=== PATIENT | male | born 1955 | race Caucasian/White ===

== ENCOUNTER 2022-01-07 13:48 | Inpatient (IN) | payer OTHER ==
[2022-01-07 14:29] VITALS: BMI 29.4
[2022-01-07] MEDS ORDERED: MAGNESIUM CITRATE 300 ML BOTTLE PO PRN (15:26)
[2022-01-07] MEDS ORDERED: DICYCLOMINE HCL 10 MG CAPSULE PO PRN (15:26)
[2022-01-07] MEDS ORDERED: LORazepam 1 MG TABLET PO PRN (15:26)
[2022-01-07] MEDS ORDERED: BENZOCAINE/MENTHOL (CHLORASEPTIC ) LOZENGE MM PRN (15:26)
[2022-01-07] MEDS ORDERED: ACETAMINOPHEN 325 MG TABLET (FP) PO PRN (15:26)
[2022-01-07] MEDS ORDERED: BISMUTH SUBSALICYLATE 262 MG/15 ML BTL PO PRN (15:26)
[2022-01-07] MEDS ORDERED: MAGNESIUM HYDROX 2400MG/30ML ORAL SUSPENSION 30 ML CUP PO PRN (15:26)
[2022-01-07] MEDS ORDERED: LOPERAMIDE HCL 2 MG CAPSULE PO PRN (15:26)
[2022-01-07] MEDS ORDERED: IBUPROFEN 400 MG TABLET (FP) PO PRN (15:26)
[2022-01-07] MEDS ORDERED: ONDANSETRON *ODT* 4 MG TABLET SL PRN (15:26)
[2022-01-07] MEDS: hydrOXYzine PAMOATE 25 MG CAPSULE (FP) PO PRN ×2 (19:45→22:56)
[2022-01-07] MEDS: IBUPROFEN 600 MG TABLET (FP) PO PRN (19:45)
[2022-01-07] MEDS: METHOCARBAMOL 500 MG TABLET PO PRN (19:47)
[2022-01-07] MEDS: LORazepam 2 MG TABLET PO SCH ×2 (19:47→22:56)
[2022-01-07] MEDS: NICOTINE 14 MG/24 HOURS TOPICAL PATCH TD SCH (19:51)
[2022-01-07] MEDS: PRENATAL VITAMINS W/ FOLIC ACID TABLET (FP) PO SCH (19:51)
[2022-01-07] MEDS ORDERED: MELATONIN 5 MG TABLETS PO SCH (22:00)
[2022-01-07] MEDS: THIAMINE HCL 100 MG TABLET (FP) PO SCH (22:56)
[2022-01-08] MEDS: LORazepam 2 MG TABLET PO SCH ×4 (05:31→22:14)
[2022-01-08 10:26] LABS: HEMOGLOBIN 13.8 GM/dL (11.7-16.9); MCH 34.6 pg (25.7-33.7); MCHC 33.7 g/dl (32.0-35.9); MEAN CELL VOLUME 102.7 fl (80-96); MEAN PLT VOLUME 10.3 fl (7.5-11.1); PLATELET COUNT 194 10^3/uL (134-434); RBC 3.99 M/mm3 (4.00-5.60); WHITE BLOOD COUNT 6.8 K/mm3 (4.0-10.0)
[2022-01-08] MEDS: PRENATAL VITAMINS W/ FOLIC ACID TABLET (FP) PO SCH (10:36)
[2022-01-08] MEDS: NICOTINE 14 MG/24 HOURS TOPICAL PATCH TD SCH (10:37)
[2022-01-08] MEDS: METHOCARBAMOL 500 MG TABLET PO PRN ×2 (10:38→22:14)
[2022-01-08] MEDS: hydrOXYzine PAMOATE 25 MG CAPSULE (FP) PO PRN (10:38)
[2022-01-08 10:48] LABS: CALCIUM 8.4 mg/dL (8.5-10.1)
[2022-01-08 10:49] LABS: BLOOD UREA NITROGEN 19.4 mg/dL (7-18)
[2022-01-08 10:52] LABS: CREATININE 0.7 mg/dL (0.55-1.3)
[2022-01-08 10:53] LABS: BILIRUBIN,TOTAL 1.2 mg/dL (0.2-1); TOT PROT 5.7 g/dl (6.4-8.2)
[2022-01-08] MEDS: IBUPROFEN 600 MG TABLET (FP) PO PRN (13:47)
[2022-01-08] MEDS: NICOTINE 10 MG CARTRIDGE (INHALER) IH PRN (17:47)
[2022-01-08] MEDS ORDERED: SUVOREXANT 10 MG TABLET PO PRN (22:00)
[2022-01-08] MEDS: THIAMINE HCL 100 MG TABLET (FP) PO SCH (23:52)
[2022-01-09] MEDS: LORazepam 1 MG TABLET PO SCH ×4 (05:39→22:04)
[2022-01-09] MEDS: ACETAMINOPHEN 325 MG TABLET (FP) PO PRN (05:39)
[2022-01-09] MEDS: METHOCARBAMOL 500 MG TABLET PO PRN (10:31)
[2022-01-09] MEDS: PRENATAL VITAMINS W/ FOLIC ACID TABLET (FP) PO SCH (10:31)
[2022-01-09] MEDS: amLODIPine BESYLATE 5 MG TABLET (FP) PO SCH (10:33)
[2022-01-09] MEDS: IBUPROFEN 600 MG TABLET (FP) PO PRN (10:33)
[2022-01-09] MEDS: NICOTINE 14 MG/24 HOURS TOPICAL PATCH TD SCH (10:56)
[2022-01-09] MEDS: THIAMINE HCL 100 MG TABLET (FP) PO SCH (22:03)
[2022-01-10] MEDS ORDERED: LORazepam 0.5 MG TABLET PO PRN
[2022-01-10] MEDS: LORazepam 0.5 MG TABLET PO SCH ×4 (05:59→22:57)
[2022-01-10] MEDS: ACETAMINOPHEN 325 MG TABLET (FP) PO PRN ×2 (06:00→14:22)
[2022-01-10] MEDS: METHOCARBAMOL 500 MG TABLET PO PRN (06:00)
[2022-01-10] MEDS: PRENATAL VITAMINS W/ FOLIC ACID TABLET (FP) PO SCH (10:25)
[2022-01-10] MEDS: amLODIPine BESYLATE 5 MG TABLET (FP) PO SCH (10:25)
[2022-01-10] MEDS: NICOTINE 14 MG/24 HOURS TOPICAL PATCH TD SCH (10:27)
[2022-01-10] MEDS: NICOTINE 10 MG CARTRIDGE (INHALER) IH PRN ×2 (11:34→15:19)
[2022-01-10] MEDS: hydrOXYzine PAMOATE 25 MG CAPSULE (FP) PO PRN ×2 (14:20→22:58)
[2022-01-10] MEDS: MAG HYDROX/AL HYDROX/SIMETH 30 ML UNIT-DOSE CUP PO PRN ×2 (18:31→23:56)
[2022-01-10] MEDS ORDERED: cloNIDine HCL 0.1 MG TABLET PO ONE (22:00)
[2022-01-10] MEDS: THIAMINE HCL 100 MG TABLET (FP) PO SCH (22:58)
[2022-01-11] MEDS ORDERED: LORazepam 0.5 MG TABLET PO ONE (05:00)
[2022-01-11] MEDS: METHOCARBAMOL 500 MG TABLET PO PRN (05:01)
[2022-01-11 09:22] VITALS: BP 135/79; PULSE 66; TEMP 98.2
[2022-01-11] MEDS: NICOTINE 10 MG CARTRIDGE (INHALER) IH PRN (09:39)
[2022-01-11] MEDS: PRENATAL VITAMINS W/ FOLIC ACID TABLET (FP) PO SCH (09:44)
[2022-01-11] MEDS: amLODIPine BESYLATE 5 MG TABLET (FP) PO SCH (09:44)
== END 2022-01-11 10:55 | disposition home or self-care (01) | DRG 897 ==
LOC: YASAS 13:48 → Y6N 17:04
PROVIDERS: ADMIT Allergy & Immunology; ATTEND Surgery
PROC: HZ2ZZZZ Detoxification Services for Substance Abuse Treatment (ICD-10-PCS; principal; 2022-01-07)
DX: F10.230 Alcohol dependence with withdrawal, uncomplicated (principal); F13.20 Sedative, hypnotic or anxiolytic dependence, uncomplicated; F19.280 Other psychoactive substance dependence with psychoactive substance-induced anxiety disorder; F19.282 Other psychoactive substance dependence with psychoactive substance-induced sleep disorder; F12.20 Cannabis dependence, uncomplicated; F17.210 Nicotine dependence, cigarettes, uncomplicated; F41.8 Other specified anxiety disorders; F32.A Depression, unspecified; F41.0 Panic disorder [episodic paroxysmal anxiety]; K74.60 Unspecified cirrhosis of liver; M16.0 Bilateral primary osteoarthritis of hip; Z99.89 Dependence on other enabling machines and devices; Z88.0 Allergy status to penicillin
CPT/HCPCS: 36415; 80053; 85027; 86780; 93005; 93010; C9803-CS; J0735; U0003; U0005

== ENCOUNTER 2022-03-17 13:04 | Inpatient (IN) | payer OTHER ==
[2022-03-17 16:27] VITALS: BMI 27.8
[2022-03-17] MEDS ORDERED: MAGNESIUM CITRATE 300 ML BOTTLE PO PRN (18:50)
[2022-03-17] MEDS ORDERED: BENZOCAINE/MENTHOL (CHLORASEPTIC ) LOZENGE MM PRN (18:50)
[2022-03-17] MEDS ORDERED: DICYCLOMINE HCL 10 MG CAPSULE PO PRN (18:50)
[2022-03-17] MEDS ORDERED: IBUPROFEN 600 MG TABLET (FP) PO PRN (18:50)
[2022-03-17] MEDS ORDERED: LOPERAMIDE HCL 2 MG CAPSULE PO PRN (18:50)
[2022-03-17] MEDS ORDERED: ACETAMINOPHEN 325 MG TABLET (FP) PO PRN ×2 (18:50)
[2022-03-17] MEDS ORDERED: ONDANSETRON *ODT* 4 MG TABLET SL PRN (18:50)
[2022-03-17] MEDS ORDERED: MAG HYDROX/AL HYDROX/SIMETH 30 ML UNIT-DOSE CUP PO PRN (18:50)
[2022-03-17] MEDS ORDERED: BISMUTH SUBSALICYLATE 524 MG/30 ML PO PRN (18:50)
[2022-03-17] MEDS ORDERED: LORazepam 1 MG TABLET PO PRN (18:50)
[2022-03-17] MEDS ORDERED: METHOCARBAMOL 500 MG TABLET PO PRN (18:50)
[2022-03-17] MEDS ORDERED: IBUPROFEN 400 MG TABLET (FP) PO PRN (18:50)
[2022-03-17] MEDS ORDERED: MAGNESIUM HYDROX 2400MG/30ML ORAL SUSPENSION 30 ML CUP PO PRN (18:50)
[2022-03-17] MEDS ORDERED: NICOTINE POLACRILEX 2 MG GUM BUC PRN (18:50)
[2022-03-17] MEDS: PRENATAL VITAMINS W/ FOLIC ACID TABLET (FP) PO SCH (20:51)
[2022-03-17] MEDS: LORazepam 2 MG TABLET PO SCH (22:46)
[2022-03-17] MEDS: hydrOXYzine PAMOATE 25 MG CAPSULE (FP) PO SCH (22:47)
[2022-03-17] MEDS: THIAMINE HCL 100 MG TABLET (FP) PO SCH (22:47)
[2022-03-17] MEDS: MELATONIN 5 MG TABLETS PO SCH (22:47)
[2022-03-18] MEDS: LORazepam 2 MG TABLET PO SCH ×4 (05:39→22:32)
[2022-03-18] MEDS: hydrOXYzine PAMOATE 25 MG CAPSULE (FP) PO SCH ×5 (05:39→22:33)
[2022-03-18] MEDS: PRENATAL VITAMINS W/ FOLIC ACID TABLET (FP) PO SCH (10:39)
[2022-03-18 11:04] LABS: HEMATOCRIT 38.8 % (35.4-49); HEMOGLOBIN 13.1 GM/dL (11.7-16.9); MCH 33.5 pg (25.7-33.7); MCHC 33.8 g/dl (32.0-35.9); MEAN CELL VOLUME 99.3 fl (80-96); MEAN PLT VOLUME 10.1 fl (7.5-11.1); PLATELET COUNT 234 10^3/uL (134-434); RBC 3.91 M/mm3 (4.00-5.60); RDW 14.3 % (11.9-15.9); WHITE BLOOD COUNT 7.1 K/mm3 (4.0-10.0)
[2022-03-18 11:32] LABS: ALBUMIN 2.8 g/dl (3.4-5.0); BLOOD UREA NITROGEN 10.4 mg/dL (7-18)
[2022-03-18 11:35] LABS: CREATININE 0.7 mg/dL (0.55-1.3)
[2022-03-18 11:37] LABS: TOT PROT 5.7 g/dl (6.4-8.2)
[2022-03-18] MEDS: THIAMINE HCL 100 MG TABLET (FP) PO SCH (22:31)
[2022-03-18] MEDS: SUVOREXANT 5 MG TABLET PO PRN (22:32)
[2022-03-18] MEDS: MELATONIN 5 MG TABLETS PO SCH (22:33)
[2022-03-19] MEDS: hydrOXYzine PAMOATE 25 MG CAPSULE (FP) PO SCH ×5 (05:34→22:45)
[2022-03-19] MEDS: LORazepam 1 MG TABLET PO SCH ×4 (05:34→22:45)
[2022-03-19] MEDS: PRENATAL VITAMINS W/ FOLIC ACID TABLET (FP) PO SCH (10:24)
[2022-03-19] MEDS: NICOTINE 10 MG CARTRIDGE (INHALER) IH PRN (14:48)
[2022-03-19] MEDS: MELATONIN 5 MG TABLETS PO SCH (22:45)
[2022-03-19] MEDS: THIAMINE HCL 100 MG TABLET (FP) PO SCH (22:45)
[2022-03-20] MEDS ORDERED: LORazepam 0.5 MG TABLET PO PRN
[2022-03-20] MEDS: hydrOXYzine PAMOATE 25 MG CAPSULE (FP) PO SCH ×5 (05:22→22:07)
[2022-03-20] MEDS: LORazepam 0.5 MG TABLET PO SCH ×4 (05:23→22:06)
[2022-03-20] MEDS: NICOTINE 10 MG CARTRIDGE (INHALER) IH PRN (10:30)
[2022-03-20] MEDS: PRENATAL VITAMINS W/ FOLIC ACID TABLET (FP) PO SCH (10:30)
[2022-03-20] MEDS ORDERED: cloNIDine HCL 0.1 MG TABLET PO ONE (21:59)
[2022-03-20] MEDS: SUVOREXANT 5 MG TABLET PO PRN (22:07)
[2022-03-20] MEDS: THIAMINE HCL 100 MG TABLET (FP) PO SCH (22:07)
[2022-03-20] MEDS: MELATONIN 5 MG TABLETS PO SCH (22:07)
[2022-03-21] MEDS ORDERED: LORazepam 0.5 MG TABLET PO ONE (05:00)
[2022-03-21] MEDS: hydrOXYzine PAMOATE 25 MG CAPSULE (FP) PO SCH ×3 (05:13→13:19)
[2022-03-21 07:03] VITALS: RESP 18
[2022-03-21 09:33] VITALS: TEMP 97.5
[2022-03-21] MEDS: PRENATAL VITAMINS W/ FOLIC ACID TABLET (FP) PO SCH (10:15)
[2022-03-21] MEDS: NICOTINE 10 MG CARTRIDGE (INHALER) IH PRN (10:17)
[2022-03-21 12:28] VITALS: BP 118/67; PULSE 64
== END 2022-03-21 13:27 | disposition other institution (70) | DRG 897 ==
LOC: YASAS 13:04 → Y3N 19:06
PROVIDERS: ADMIT Allergy & Immunology; ATTEND Surgery
PROC: HZ2ZZZZ Detoxification Services for Substance Abuse Treatment (ICD-10-PCS; principal; 2022-03-17)
DX: F10.230 Alcohol dependence with withdrawal, uncomplicated (principal); F13.20 Sedative, hypnotic or anxiolytic dependence, uncomplicated; F12.20 Cannabis dependence, uncomplicated; F17.210 Nicotine dependence, cigarettes, uncomplicated; F41.9 Anxiety disorder, unspecified; F32.A Depression, unspecified; K74.60 Unspecified cirrhosis of liver; M16.0 Bilateral primary osteoarthritis of hip; R03.0 Elevated blood-pressure reading, without diagnosis of hypertension; Z99.89 Dependence on other enabling machines and devices; Z88.0 Allergy status to penicillin; Z56.0 Unemployment, unspecified; Z59.00 Homelessness unspecified
CPT/HCPCS: 36415; 80053; 85027; 86780; C9803-CS; J0735; U0003; U0005

== ENCOUNTER 2022-03-21 12:52 | Inpatient (IN) | payer OTHER ==
[2022-03-21] MEDS ORDERED: LOPERAMIDE HCL 2 MG CAPSULE PO PRN (14:47)
[2022-03-21] MEDS ORDERED: MAGNESIUM HYDROX 2400MG/30ML ORAL SUSPENSION 30 ML CUP PO PRN (14:47)
[2022-03-21] MEDS ORDERED: P-EPHED 60MG/TRIPROLIDI 2.5MG TABLET PO PRN (14:47)
[2022-03-21] MEDS ORDERED: guaiFENesin 200 MG/10 ML 10 ML UNIT-DOSE CUPS PO PRN (14:47)
[2022-03-21] MEDS ORDERED: BENZOCAINE/MENTHOL (CHLORASEPTIC ) LOZENGE MM PRN (14:47)
[2022-03-21] MEDS ORDERED: MAGNESIUM CITRATE 300 ML BOTTLE PO PRN (14:47)
[2022-03-21] MEDS ORDERED: MAG HYDROX/AL HYDROX/SIMETH 30 ML UNIT-DOSE CUP PO PRN (14:47)
[2022-03-21] MEDS: amLODIPine BESYLATE 10 MG TABLET (FP) PO SCH (15:24)
[2022-03-21] MEDS: hydrOXYzine PAMOATE 25 MG CAPSULE (FP) PO PRN (15:24)
[2022-03-21] MEDS: LIDOCAINE 5% TOPICAL PATCH TP SCH (15:25)
[2022-03-21] MEDS: IBUPROFEN 400 MG TABLET (FP) PO PRN (18:27)
[2022-03-21] MEDS: SUVOREXANT 10 MG TABLET PO PRN (21:20)
[2022-03-21] MEDS: THIAMINE HCL 100 MG TABLET (FP) PO SCH (21:20)
[2022-03-21] MEDS: LIDOCAINE PATCH REMOVAL MC SCH (21:20)
[2022-03-21] MEDS: NICOTINE 10 MG CARTRIDGE (INHALER) IH PRN (21:20)
[2022-03-21] MEDS ORDERED: MELATONIN 5 MG TABLETS PO SCH (22:00)
[2022-03-22] MEDS: hydrOXYzine PAMOATE 25 MG CAPSULE (FP) PO PRN ×4 (03:05→21:29)
[2022-03-22] MEDS: NICOTINE 7 MG/24 HOURS TOPICAL PATCH TD SCH (09:39)
[2022-03-22] MEDS: LIDOCAINE 5% TOPICAL PATCH TP SCH (09:39)
[2022-03-22] MEDS: PRENATAL VITAMINS W/ FOLIC ACID TABLET (FP) PO SCH (09:39)
[2022-03-22] MEDS: amLODIPine BESYLATE 10 MG TABLET (FP) PO SCH (09:39)
[2022-03-22] MEDS: NICOTINE 10 MG CARTRIDGE (INHALER) IH PRN ×3 (09:40→21:43)
[2022-03-22] MEDS: IBUPROFEN 400 MG TABLET (FP) PO PRN (13:49)
[2022-03-22] MEDS: LIDOCAINE PATCH REMOVAL MC SCH (21:29)
[2022-03-22] MEDS: SUVOREXANT 10 MG TABLET PO PRN (21:29)
[2022-03-22] MEDS: THIAMINE HCL 100 MG TABLET (FP) PO SCH (21:29)
[2022-03-23] MEDS: LIDOCAINE 5% TOPICAL PATCH TP SCH (09:44)
[2022-03-23] MEDS: PRENATAL VITAMINS W/ FOLIC ACID TABLET (FP) PO SCH (09:45)
[2022-03-23] MEDS: hydrOXYzine PAMOATE 25 MG CAPSULE (FP) PO PRN ×2 (09:45→21:27)
[2022-03-23] MEDS: amLODIPine BESYLATE 10 MG TABLET (FP) PO SCH (09:45)
[2022-03-23] MEDS: NICOTINE 7 MG/24 HOURS TOPICAL PATCH TD SCH (09:46)
[2022-03-23] MEDS: NICOTINE 10 MG CARTRIDGE (INHALER) IH PRN ×2 (11:06→16:59)
[2022-03-23] MEDS: IBUPROFEN 400 MG TABLET (FP) PO PRN (16:59)
[2022-03-23] MEDS: THIAMINE HCL 100 MG TABLET (FP) PO SCH (21:27)
[2022-03-23] MEDS: LIDOCAINE PATCH REMOVAL MC SCH (21:28)
[2022-03-23] MEDS: SUVOREXANT 10 MG TABLET PO PRN (21:28)
[2022-03-24] MEDS: IBUPROFEN 400 MG TABLET (FP) PO PRN ×2 (07:53→21:16)
[2022-03-24] MEDS: NICOTINE 10 MG CARTRIDGE (INHALER) IH PRN (09:38)
[2022-03-24] MEDS: PRENATAL VITAMINS W/ FOLIC ACID TABLET (FP) PO SCH (09:38)
[2022-03-24] MEDS: amLODIPine BESYLATE 10 MG TABLET (FP) PO SCH (09:38)
[2022-03-24] MEDS: ACETAMINOPHEN 325 MG TABLET (FP) PO PRN (09:41)
[2022-03-24] MEDS: LIDOCAINE 5% TOPICAL PATCH TP SCH (10:29)
[2022-03-24] MEDS: NICOTINE 7 MG/24 HOURS TOPICAL PATCH TD SCH (10:29)
[2022-03-24] MEDS: THIAMINE HCL 100 MG TABLET (FP) PO SCH (21:15)
[2022-03-24] MEDS: hydrOXYzine PAMOATE 25 MG CAPSULE (FP) PO PRN (21:15)
[2022-03-24] MEDS: LIDOCAINE PATCH REMOVAL MC SCH (21:34)
[2022-03-24] MEDS ORDERED: SUVOREXANT 10 MG TABLET PO PRN (22:00)
[2022-03-25] MEDS: IBUPROFEN 400 MG TABLET (FP) PO PRN (06:45)
[2022-03-25] MEDS: LIDOCAINE 5% TOPICAL PATCH TP SCH (09:52)
[2022-03-25] MEDS: amLODIPine BESYLATE 10 MG TABLET (FP) PO SCH (09:53)
[2022-03-25] MEDS: NICOTINE 7 MG/24 HOURS TOPICAL PATCH TD SCH (09:53)
[2022-03-25] MEDS: PRENATAL VITAMINS W/ FOLIC ACID TABLET (FP) PO SCH (09:53)
[2022-03-25] MEDS: NICOTINE 10 MG CARTRIDGE (INHALER) IH PRN (09:54)
[2022-03-25] MEDS: ACETAMINOPHEN 325 MG TABLET (FP) PO PRN (12:02)
[2022-03-25] MEDS: LIDOCAINE PATCH REMOVAL MC SCH (21:09)
[2022-03-25] MEDS: THIAMINE HCL 100 MG TABLET (FP) PO SCH (21:09)
[2022-03-25] MEDS: SUVOREXANT 15 MG TABLET PO PRN (21:11)
[2022-03-26] MEDS: METHOCARBAMOL 750 MG TABLET PO PRN ×2 (06:27→13:27)
[2022-03-26] MEDS: hydrOXYzine PAMOATE 25 MG CAPSULE (FP) PO PRN (06:28)
[2022-03-26 06:37] VITALS: RESP 18
[2022-03-26] MEDS: PRENATAL VITAMINS W/ FOLIC ACID TABLET (FP) PO SCH (10:07)
[2022-03-26] MEDS: amLODIPine BESYLATE 10 MG TABLET (FP) PO SCH (10:07)
[2022-03-26] MEDS: NAPROXEN 500 MG TABLET PO PRN (10:08)
[2022-03-26] MEDS: LIDOCAINE 5% TOPICAL PATCH TP SCH (10:08)
[2022-03-26] MEDS: NICOTINE 10 MG CARTRIDGE (INHALER) IH PRN ×2 (10:08→21:23)
[2022-03-26] MEDS: NICOTINE 7 MG/24 HOURS TOPICAL PATCH TD SCH (10:08)
[2022-03-26] MEDS: SUVOREXANT 15 MG TABLET PO PRN (21:22)
[2022-03-26] MEDS: THIAMINE HCL 100 MG TABLET (FP) PO SCH (21:22)
[2022-03-26] MEDS: LIDOCAINE PATCH REMOVAL MC SCH (21:22)
[2022-03-27] MEDS: NICOTINE 10 MG CARTRIDGE (INHALER) IH PRN ×2 (06:48→10:05)
[2022-03-27] MEDS: LIDOCAINE 5% TOPICAL PATCH TP SCH (09:58)
[2022-03-27] MEDS: NAPROXEN 500 MG TABLET PO PRN (09:59)
[2022-03-27] MEDS: amLODIPine BESYLATE 10 MG TABLET (FP) PO SCH (09:59)
[2022-03-27] MEDS: NICOTINE 7 MG/24 HOURS TOPICAL PATCH TD SCH (09:59)
[2022-03-27] MEDS: PRENATAL VITAMINS W/ FOLIC ACID TABLET (FP) PO SCH (09:59)
[2022-03-27] MEDS: METHOCARBAMOL 750 MG TABLET PO PRN (15:49)
[2022-03-27] MEDS: ACETAMINOPHEN 325 MG TABLET (FP) PO PRN ×2 (15:49→21:16)
[2022-03-27] MEDS: SUVOREXANT 15 MG TABLET PO PRN (21:16)
[2022-03-27] MEDS: LIDOCAINE PATCH REMOVAL MC SCH (21:16)
[2022-03-27] MEDS: THIAMINE HCL 100 MG TABLET (FP) PO SCH (21:16)
[2022-03-28] MEDS: NICOTINE 10 MG CARTRIDGE (INHALER) IH PRN (06:31)
[2022-03-28] MEDS: amLODIPine BESYLATE 10 MG TABLET (FP) PO SCH (09:58)
[2022-03-28] MEDS: hydrOXYzine PAMOATE 25 MG CAPSULE (FP) PO PRN (09:58)
[2022-03-28] MEDS: NAPROXEN 500 MG TABLET PO PRN (09:58)
[2022-03-28] MEDS: LIDOCAINE 5% TOPICAL PATCH TP SCH (09:59)
[2022-03-28] MEDS: PRENATAL VITAMINS W/ FOLIC ACID TABLET (FP) PO SCH (09:59)
[2022-03-28] MEDS: NICOTINE 7 MG/24 HOURS TOPICAL PATCH TD SCH (09:59)
[2022-03-28 12:16] VITALS: TEMP 97.1
[2022-03-28] MEDS ORDERED: METOPROLOL TARTRATE 25 MG TABLET (FP) PO ONE (12:45)
[2022-03-28 13:10] VITALS: BP 134/81; PULSE 93
== END 2022-03-28 13:15 | disposition home or self-care (01) | DRG 895 ==
LOC: YASAS 12:52 → Y3E 13:38
PROVIDERS: ADMIT Allergy & Immunology; ATTEND Psychiatry & Neurology Pain Medicine
PROC: HZ42ZZZ Group Counseling for Substance Abuse Treatment, Cognitive-Behavioral (ICD-10-PCS; principal; 2022-03-21)
DX: F10.20 Alcohol dependence, uncomplicated (principal); I10 Essential (primary) hypertension; M19.90 Unspecified osteoarthritis, unspecified site; M54.59 Other low back pain; G89.29 Other chronic pain; W18.39XA Other fall on same level, initial encounter; Z91.81 History of falling; Y93.01 Activity, walking, marching and hiking; Y92.232 Corridor of hospital as the place of occurrence of the external cause; Z88.0 Allergy status to penicillin

== ENCOUNTER 2022-03-25 16:01 | Emergency (ER) | payer OTHER ==
[2022-03-25 16:15] VITALS: BP 135/84; PULSE 88; RESP 20; TEMP 98.4; BMI 28.7
[2022-03-25] MEDS ORDERED: NAPROXEN 500 MG TABLET PO ONE (17:34)
[2022-03-25] MEDS ORDERED: METHOCARBAMOL 750 MG TABLET PO ONE (17:35)
[2022-03-25] MEDS ORDERED: NAPROXEN 500 MG TABLET ONE (17:49)
[2022-03-25] MEDS ORDERED: METHOCARBAMOL 500 MG TABLET ONE (17:49)
[2022-03-25] MEDS ORDERED: ACETAMINOPHEN 500 MG TABLET (FP) PO ONE (19:04)
[2022-03-25] MEDS ORDERED: ACETAMINOPHEN 500 MG TABLET (FP) ONE (19:09)
== END 2022-03-25 19:26 ==
LOC: JERFT 16:01 → JER 16:01 → JERFT 19:26
DX: M25.552 Pain in left hip (principal); W19.XXXA Unspecified fall, initial encounter; Y92.9 Unspecified place or not applicable
CPT/HCPCS: 70450-TC; 72100-TC-FY; 72170-TC-FY; 73502-TC-LT-FY; 99285-25